=== PATIENT | male | born 1935 | race Caucasian/White ===

== ENCOUNTER 2016-09-03 21:31 | Inpatient (IN) | payer MEDICARE ==
[~2016-09-03] VITALS: Ht 182.9 cm; Wt 92.7 kg
--- NOTE | 2016-09-03 21:28 | ED.REPORT ---
HPI-Chest Pain 40 and Over Date of Service Sep 03, 2016 ED Provider: Von Caruso MD Pt is an 81 year old male with a hx of aortic valve replacement (2008), depression, Alzheimer's and prostate cancer presenting to the ED via EMS complaining of 6/10 gradual onset chest pain beginning 2 hours ago. Associated symptoms include nausea, diaphoresis, dizziness, weakness. Denies abdominal pain , SOB, numbness, or any other symptoms at this time. Pt was given 1 spray Nitro which improved his pain to 1/10, and 8 mg Zofran en route. He denies previous similar symptoms. Nursing Notes Stated Complaint: CHEST PAIN Nursing Notes Reviewed: Yes Allergies: Coded Allergies: tamsulosin (Verified Adverse Reaction, Unknown, DIZZY, NAUSEA, CONFUSION, 07/26/15) Scheduled Baclofen (Baclofen) 10 Mg Tablet 10 MG PO BID Ca Carb & Gluc/Mag Ox & Gluc (Calcium Magnesium Caplet) 1 Each Tablet 1 EACH PO BID Clopidogrel Bisulfate (Plavix) 75 Mg Tablet 75 MG PO DAILY Donepezil (Donepezil) 10 Mg Tablet 10 MG PO HS Lamotrigine (Lamictal) 100 Mg Tablet 150 MG PO BID Levothyroxine (Levothyroxine) 75 Mcg Tablet 75 MCG PO DAILY Mirtazapine (Mirtazapine) 30 Mg Tablet 30 MG PO HS Nifedipine ER (Nifedipine ER) 90 Mg Tab.er.24 90 MG PO DAILY Potassium Chloride (Potassium Chloride) 10 Meq Capsule.er 20 MEQ PO BID TAKE WITH FOOD Triamterene/HCTZ 37.5-25 mg (Triamterene/HCTZ 37.5-25 mg) 1 Each Tablet 1 EACH PO AM General Time Seen by MD: 21:25 Chief Complaint Chest pain Hx Obtained From: Patient, EMS Arrived By: Ambulance Sudden in Onset?: No Onset Occurred: 1 - 4 hours ago Symptom Duration: Since onset Quality: Painful Severity: Current: Pain level 1 out of 10 Severity: Maximum: Pain level 6 out of 10 Recent Healthcare: No recent doctor visit, No recent hospitalization Similar Sx Previous: No Risk Factors )( CAD Risk Stratification Hypertension Risk factors reviewed Past Medical History Past Medical History Depression HTN Alzheimer's Prostate cancer Past Surgical History Aortic valve replacement 2008 Smoking History Former Smoker Social History Alcohol Use: Denies alcohol use Drug Use: Denies drug use Ambulatory Status Independent Review of Systems Respiratory: Denies: Shortness of breath Cardiovascular: Reports: Chest pain GI: Reports: Nausea, Denies: Abdominal pain, Vomiting Skin: Reports Diaphoresis Neurologic: Reports: Dizziness, Weakness, Denies: Numbness Complete sys rev & neg: except as marked. Physical Exam Initial Vital Signs Vital Signs (First) Date Time Temp Pulse Resp B/P Pulse Ox O2 Delivery O2 Flow Rate FiO2 09/03/16 21:35 36.6 136 16 132/77 94 Room Air Initial VS: Reviewed, Vital signs abnormal Head / Eyes: Atraumatic, Normocephalic, PERRL ENT: Mucous membranes moist, Conjunctiva normal, No scleral icterus Extremities: Vascular intact, Neuro intact, No swelling, No tenderness Skin: Warm, Dry, No cyanosis Neurologic: Alert, Oriented, Nonfocal Psychiatric: Mood/affect normal, Behavior normal, Normal thought content General/Constitutional: Awake, Alert, No acute distress, Well appearing Respiratory / Chest: Breath sounds NL, Breath sounds = bilat, No respiratory distress, No rales, No rhonchi, No wheezing, No stridor, No chest tenderness Cardiovascular: Heart rate NL, Regular rhythm, Heart sounds NL Heart Sounds / Murmur: Positive: Systolic murmur present.. (III/) Abdomen: Atraumatic, Soft, Non-tender Lower Extremity / Pelvis / MS: Neurologic intact, Vascular intact 1+ right LE edema. Trace left LE edema. Interpretation & Diagnostics Lab Results Interpretation Result Diagram: 09/03/16213309/03/162133 Test 09/03/16 21:34 White Blood Count 7.9th/mm3 (3.8-10.1) Red Blood Count 5.14mil/mm3 (4.40-5.80) Hemoglobin 15.2g/dL (13.8-17.2) Hematocrit 45.3% (41.0-50.0) Mean Corpuscular Volume 88.1fL (81-100) Mean Corpuscular Hemoglobin 29.6pg (27.0-35.0) Mean Corpuscular Hemoglobin Concent 33.6% (32.0-37.0) Red Cell Distribution Width 14.7% (12.3-15.4) Platelet Count 328bil/L (150-400) Neutrophils (%) (Auto) 54.7% (40-74) Lymphocytes (%) (Auto) 31.3% (14-46) Monocytes (%) (Auto) 12.0% (4-12) Eosinophils (%) (Auto) 1.3% (0-5) Basophils (%) (Auto) 0.4% (0-3) Sodium Level 140mEq/L (134-144) Potassium Level 3.2mEq/L (3.5-5.2) Chloride Level 98mEq/L (97-108) Carbon Dioxide Level 25mmol/L (18-29) Blood Urea Nitrogen 12mg/dL (8-27) Creatinine 1.04mg/dL (0.76-1.27) Estimat Glomerular Filtration Rate 72mL/min (>59) Glucose Level 154mg/dL (60-99) Calcium Level 9.8mg/dL (8.5-10.1) Magnesium Level 2.3mg/dL (1.6-2.6) Total Bilirubin 0.4mg/dL (0.0-1.2) Aspartate Amino Transf (AST/SGOT) 32U/L (0-50) Alanine Aminotransferase (ALT/SGPT) 21U/L (0-44) Alkaline Phosphatase 84U/L (25-160) Troponin T 0.010ug/L (0.0-0.011) Total Protein 8.0g/dL (6.4-8.4) Albumin 4.8g/dL (3.4-5.0) Thyroid Stimulating Hormone (TSH) 3.190uIU/mL (0.450-4.500) Free Thyroxine 1.43ng/dL (0.82-1.77) Lab values outside NL range: no clinical significance. Lab Results Interpretation: Low potassium, normal troponin ECG Interpretation ECG Interpretation: Atrial flutter Time: 21:33 Interpreted by: ED physician, Associate Financial Planner Time: 22:44 Interpreted by: ED physician Normal ECG Interpretation: Normal sinus rhythm Abnormal Rate: 50 (57) Rhythm / Conduction: Bradycardia X-Ray Chest Interpretation Chest Xray Interpretation: Normal. Left hemidiaphragm. View: Portable, 1 view Interpretation / Wet Read by: Wet read ED physician Re-Eval/Medical Decision Med Decision/Clinical Course 81-year-old male with substernal chest pain and rapid heart rate brought in by paramedics. There was concern for ST elevation, possible STEMI. He was treated en route with Zofran and aspirin. His pain diminished. Upon arrival here he is EKG showed atrial flutter at a rate of 135 with 2-1 block. The nonconducting flutter waves were on top of the ST segment so it falsely appeared to be ST elevation. Case was discussed with Dr. Santacruz and he reviewed the EKG. He felt that there was atrial flutter with 2-1 block and no STEMI. Patient was given aspirin and one dose of IV metoprolol. His heart rate slowed , revealing atrial flutter with variable block and then converted back to a sinus bradycardia at 57 bpm. He is case was discussed with Dr. Leonardo and he will be admitted to the hospitalist service for further evaluation to include troponin trending. He is currently pain-free. Time of Eval: 21:58 Patient Status: Condition improved Re-Evaluation/Progress Note: Discussed consultation with Dr. Hardin. His reports that the pt has had an episode of atrial flutter in the past several years ago. Time of Eval: 22:42 Patient Status: Condition improved Re-Evaluation/Progress Note: Chest pain resolved. Repeat EKG shows normal sinus rhythm. Discussed plan for admission. Pt understands and agrees with plan. Consultation #1: Referral / Consult Name: Kris Hardin MD Consulted With: Cardiology Call Returned at: 21:49 Note: Dr. Hardin believes that the pt is in atrial flutter. Consultation #2: Referral / Consult Name: Clifton Leonardo MD Consulted With: Hospitalist Call Returned at: 23:20 Fruit Press Operator: Will see patient, Agrees with plan, Accepts admit Counseled Regarding: Diagnosis, Lab results, Need for follow-up, When/why to return to ED Discharge & Departure Primary Impression: New onset atrial flutter Additional Impression: Chest pain Chest pain type: chest pain due to myocardial ischemia Disposition: ADMITTED TO HOSPITAL Discharge Condition All VS Reviewed: Yes Condition: Improved Referrals: [facility] Crit Care Except Billable Proc Time Spent: 30-74 minutes (50 minutes) Services Performed: Patient management by me, Time spent at bedside, Reviewing test results, Reviewing imaging, Discussing patient care, Documentation in record Critical Care Notes: Substernal chest pain with rapid heart rate, atrial flutter treated with IV metoprolol. Scribe Attestation Portions of this note were transcribed by Cyn Maldonado. I, Dr. Caruso personally performed the history, physical exam and medical decision-making; I reviewed and confirmed the accuracy of the information in the transcribed note. Signed by: Bronson Quarles, and [phone]. copies to: [facility] Von Caruso MD Sep 03, 2016 21:28 CYN MALDONADO Sep 03, 2016 21:56
[~2016-09-03 21:31] MED LIST: Aspirin PO; BACL10TA PO; CA C1TAB86 PO; CLOP75TA3 PO; DONE5TAB30 PO; LEVO750T39 PO; LISI-567 PO; MIRT30TA6 PO; NIFE60TA9 PO; POTA10CA42 PO; TRIA1TAB3 PO
[2016-09-03 21:35] VITALS: BP 132/77; PULSE 136; RESP 16; O2SAT 94
[2016-09-03] MEDS ORDERED: MeTOProlol 1 mg/mL 5 mL Inj IVPUSH PRN (21:40)
[2016-09-03 21:43] LABS: BASOPHILS % (AUTO) 0.4 % (0-3); EOSINOPHILS % (AUTO) 1.3 % (0-5); Mean Corpuscular Hemoglobin 29.6 pg (27.0-35.0); Mean Corpuscular Volume 88.1 fL (81-100); NEUTROPHILS % (AUTO) 54.7 % (40-74); Platelet Count 328 bil/L (150-400)
[2016-09-03 21:59] VITALS: BP 126/80; PULSE 92; RESP 16; O2SAT 96
[2016-09-03 22:06] LABS: TROPONIN T 0.01 ug/L (0.0-0.011)
[2016-09-03 22:17] LABS: Magnesium 2.3 mg/dL (1.6-2.6)
[2016-09-03] MEDS ORDERED: BACL10TA PO (22:58)
[2016-09-03] MEDS ORDERED: NIFE90TA31 PO (22:58)
[2016-09-03] MEDS ORDERED: LAMO100T PO (22:58)
[2016-09-03] MEDS ORDERED: DONE10TA42 PO (22:58)
[2016-09-03] MEDS ORDERED: Potassium Chloride 20 mEq SR Tablet PO ONE (23:00)
[2016-09-03] MEDS ORDERED: LEVO75TA4 PO (23:01)
[2016-09-03] MEDS ORDERED: Ondansetron 2 mg/mL 2 mL Inj IVPUSH PRN (23:40)
[2016-09-03] MEDS ORDERED: Alum-Mag Hydrox-Simeth 30 mL Suspension PO PRN (23:40)
[2016-09-03] MEDS ORDERED: Polyethylene Glycol (PEG) 17 Gm Powder PO PRN (23:40)
[2016-09-03] MEDS ORDERED: Potassium Chloride 20 mEq/15 mL 15mL Oral Soln PO ONE (23:45)
[2016-09-04] VITALS (9 sets, daily range): BP systolic 122–174; BP diastolic 60–80; PULSE 56–69; RESP 16–18; O2SAT 94–98
--- NOTE | 2016-09-04 01:11 | NUR ---
ADMIT NOTE Pt arrived to [facility] approx 0035. Pt alert and oriented. Pt able to ambulate from stretcher to bed, SBA for safety. Pt states using cane sometime at home. VS obtained. Pt placed on remote telemetry, sap technical developer notified. Pt denies chest pain or any other discomforts at this time. Continue to monitor. Call light in reach. Bed alarm on. Intentional rounding.
[2016-09-04] MEDS: Heparin 5,000 Unit/mL Inj SUBQ SCH ×3 (01:45→16:14)
--- NOTE | 2016-09-04 01:55 | NUR ---
TELEMETRY--7 beats V.tach At 0150, per monitoring engineer, pt had 7 beats V.tach. RN went to check on pt, pt laying in bed, awake, denies any chest pain or discomforts. NOC resident notified. No new orders at this time.
--- NOTE | 2016-09-04 02:04 | NUR ---
FAMILY CONCERNS Pts grand-daughter who is staying overnight w/ pt states, "I don't know if this has anything to do with my grandfather's current situation, but in 2007, my father , right around father's day. So around this time, he forgets to eat, downplays a lot of his medical issues and his depression. He is not the best historian for his medical health." Continue to monitor.
[2016-09-04 02:17] LABS: APPEARANCE,URINE CLEAR (CLEAR,HAZY); COLOR,URINE YELLOW (YELLOW); OCCULT BLOOD,URINE NEGATIVE (NEGATIVE); PH,URINE 6.5 (5.0-8.0); UROBILINOGEN,URINE NORMAL (NORMAL)
--- NOTE | 2016-09-04 04:46 | PCM.HPMED ---
Subjective Date of Service Sep 04, 2016 Primary Provider: Admitting Physician: Clifton Leonardo MD Primary Care Physician: Hernan Cummings Attending Physician: Clifton Leonardo MD Admit Status: From the Emergency Department Chief Complaint: Chest pain History of Present Illness: Pt is an 81 year old male with a history of of aortic valve replacement (2008), depression, Alzheimer's and prostate cancer post external beam radiation in remission presenting to the ED via EMS complaining of gradual onset intrascapular back pain which eventually radiated into his chest. The patient states that he was out in the yard working this afternoon when he began to feel the pain gradually at onset. The patient describes the pain as pressure initially starting between his scapulas however eventually radiating into his chest. The patient sat down and the pain continued to become worse and eventually growing to 6 out of 10 with associated nausea, clammy cold diaphoresis, dizziness, with mild shortness of breath. The patient took his blood pressure at that time and was found to have a blood pressure of 150s over 100s with an elevated heart rate. The patient states that he called EMS where the patient was given 1 spray Nitro which improved his pain to 1/10, and 8 mg Zofran en route. He denies previous similar symptoms. In the ED the patient was noted to have a possible atrial flutter which was discussed specifically with cardiology, and converted spontaneously after administration of IV metoprolol. There is a possible past medical history remarkable for atrial fibrillation/flutter. The patient denies any recent illness including previous fever or chills, coughing sore throat and runny nose, abdominal pain, swelling in his hands or feet. Review of Systems: A comprehensive review of systems was obtained and all are negative except for what is included in the history of present illness. Allergies Coded Allergies: levofloxacin (Verified Allergy, Severe, 09/04/16) Blistering feet tamsulosin (Verified Adverse Reaction, Unknown, DIZZY, NAUSEA, CONFUSION, 07/26/15) Home Medications Baclofen (Baclofen) 10 Mg Tablet 10 MG PO BID Ca Carb & Gluc/Mag Ox & Gluc (Calcium Magnesium Caplet) 1 Each Tablet 1 EACH PO BID Clopidogrel Bisulfate (Plavix) 75 Mg Tablet 75 MG PO DAILY Donepezil (Donepezil) 10 Mg Tablet 10 MG PO HS Lamotrigine (Lamictal) 100 Mg Tablet 150 MG PO BID Levothyroxine (Levothyroxine) 75 Mcg Tablet 75 MCG PO DAILY Mirtazapine (Mirtazapine) 30 Mg Tablet 30 MG PO HS Nifedipine ER (Nifedipine ER) 90 Mg Tab.er.24 90 MG PO DAILY Potassium Chloride (Potassium Chloride) 10 Meq Capsule.er 20 MEQ PO BID TAKE WITH FOOD Triamterene/HCTZ 37.5-25 mg (Triamterene/HCTZ 37.5-25 mg) 1 Each Tablet 1 EACH PO AM PMH History of TIA Coronary artery disease Aortic valve stenosis Dyslipidemia Osteoarthritis Depression Hypertension Alzheimer's Prostate cancer in remission Surgical History Porcine Aortic valve replacement 2009 External beam radiation for prostate cancer Family History Father had heart attack and stroke in his 50s dying at 72 Mother had possible heart disease and in her 80s Social History 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 Hx Alcohol Use: No Hx Substance Use: No Hx Tobacco Use: Yes Smoking Status: Former Smoker (quit 33 years old) Living Arrangement: with Family Exam Vital Signs Vital Sign - Last Date Time Temp Pulse Resp B/P Pulse Ox O2 Delivery O2 Flow Rate FiO2 09/04/16 00:49 36.3 65 16 174/74 98 Room Air Exam Gen.: Senior at male appearing younger than stated age in no acute distress lying comfortably in bed Eyes: Pupils equal round and reactive to light, extraocular motion intact anicteric sclera noninjected conjunctiva HENT: Normocephalic atraumatic, moist mucous membranes without central cyanosis , without cobblestoning mucosa Neck: Supple, trachea midline, no JVD Cardiovascular: Regular rate and rhythm, soft systolic ejection murmur noted at right sternal border, no rubs or gallops noted, PMI nondisplaced Lungs: Clear to auscultation bilaterally without wheezing rales or rhonchi Abdomen: Nontender, normal active bowel sounds, nondistended, tympanic to percussion Extremities: Pulses intact and radial and dorsalis pedis bilaterally, Capillary refill less than 3 seconds, no cyanosis clubbing or edema noted Skin: Warm and dry : No Sr in place Neuro: No focal neurologic deficits Psych: Normal mood and affect Lab and Diagnostics Result Diagram: 09/03/16213309/03/162133 X-Rays, CTs and MRIs No acute cardiopulmonary processes per wet read 12-lead ECG ECG in EMR shows sinus tachycardia with appearance of possible ST depression in leads I and aVL, with reciprocal ST elevation in III, aVR, V1 Per the ED report "81-year-old male with substernal chest pain and rapid heart rate brought in by paramedics. There was concern for ST elevation, possible STEMI. He was treated en route with Zofran and aspirin. His pain diminished. Upon arrival here he is EKG showed atrial flutter at a rate of 135 with 2-1 block. The nonconducting flutter waves were on top of the ST segment so it falsely appeared to be ST elevation. Case was discussed with Dr. Santacruz and he reviewed the EKG. He felt that there was atrial flutter with 2-1 block and no STEMI. Patient was given aspirin and one dose of IV metoprolol. His heart rate slowed, revealing atrial flutter with variable block and then converted back to a sinus bradycardia at 57 bpm." Cardiac Echo Impressions Previously performed Echocardiogram Report 2015 Interpretation Summary Sinus bradycardia. heart rate is 57-62 bpm. Normal LV size; mild concentric LVH; there is subtle basal inferior, mid- inferior, distal inferior, distal septal and mid-inferoseptal hypokinesis. All other segments demonstrate normal wall motion. EF is normal, estimated at 60-65% . Stage I disatolic dysfunction Aortic valve is replaced by history with a stented bioprosthesis. Aortic valve is functioning normally. There is severe LA enlargement and moderate RA enlargement. Mildly enlarged ascending aorta and ascending root. Compared to prior study dated 11/03/2013, subtle focal wall motion abnormalities in inferior and inferoseptum distribution are unchanged on personal review. Otherwise no significant changes have occurred. Reading Physician:01: 50 PM Assessment & Plan Pt is an 81 year old male with a history of of aortic valve replacement (2008), depression, Alzheimer's and prostate cancer post external beam radiation in remission presenting to the ED via EMS complaining of gradual onset intrascapular back pain which eventually radiated into his chest. # Atypical chest pain - Described as pressure in between the scapula radiating to his chest and occurred at rest however may have resolved with nitroglycerin - ECG initially showed tachycardia however after IV metoprolol push slowed to reveal 2:1 atrial flutter read by the machine feeder raw stock per the ED note - Echocardiogram ordered to check for wall motion abnormalities - Troponins initially negative trended every 6 hours # Paroxysmal atrial flutter/fibrillation - Possibly the cause of the atypical chest pain - Patient and family report a possible previous episode of atrial fibrillation in the past - Noted by the ED provider in communication with the machine feeder raw stock, spontaneously cardioverted after administration of metoprolol 5 mg IV - TSH 3.19 and free T4 1 0.43 ordered in the emergency department appear to be in normal ranges - Noted hypokalemia could possibly caused tachyarrhythmia, repleted we will repeat BMP - Telemetry with when necessary ECGs - The patient will need to be started on anticoagulation therapy likely Lovenox 1 mg/kg Bridge to warfarin - Day team to consider warfarin versus novel anticoagulant # Acute on Chronic hypokalemia - Potassium at admission 3.2 - Patient is on chronic potassium chloride replacement 20 mEq twice a day - Replete when necessary - Monitor with serial BMPs # Chronic Hypertension - Continue outpatient therapy - Nifedipine 90 mg daily - Triamterene/HCTZ - Holding beta silvestre at this time # History of TIA - Patient is chronically on clopidogrel 75 mg daily this will be discontinued in place of anticoagulation described above for paroxysmal atrial fibrillation to likely Lovenox to warfarin or other novel anticoagulant # Aortic valve stenosis post porcine valve replacement - Patient is chronically on clopidogrel 75 mg daily this will be discontinued in place of anticoagulation described above for paroxysmal atrial fibrillation to likely Lovenox to warfarin or other novel anticoagulant # Chronic Dyslipidemia - Patient is currently not on statin therapy - Lipid panel ordered in the morning # History of Depression - Continue the patient's home medication therapy - Mirtazapine 30 mg at bedtime - Lamictal 150 mg twice a day # Chronic Alzheimer's disease - Continue the patient's home Aricept 10 mg daily # Prostate cancer in remission - Monitor for difficulty with urination DVT prophylaxis: Currently heparin 5000 units 3 times a day to be converted to Lovenox 1 mg/kg GI prophylaxis: Not indicated at this time CODE STATUS: DNR/DNI Patient is admitted to observation status with likely stay less than 2 midnights given presenting symptoms, likely diagnosis, possible complications and required treatments. Pain Evaluation: Adequate Pain Control GI Prophylaxis: Not indicated VTE Prophylaxis Indicated: Meets Criteria for Anticoag Therapy VTE Prophylaxis: Sub-Q Heparin (Unfractionated) Resuscitation Status: DNR/DNI:Do Not Resuscitate/Intubate Attending Statement The patient was seen and examined together with Dr. Rivera on 09/03 and I agree with the history, exam and plan as outlined in the note above. Franco Nieves DO Sep 04, 2016 01:17 Clifton Leonardo MD Sep 04, 2016 05:07
[2016-09-04 04:59] LABS: TROPONIN T 0.01 ug/L (0.0-0.011)
[2016-09-04] MEDS: lamoTRIgine 100 mg Tablet PO SCH ×2 (08:44→20:56)
[2016-09-04] MEDS: NIFEdipine 30 mg ER24 Tablet PO SCH (08:45)
--- NOTE | 2016-09-04 11:06 | PCM.PNMED ---
Subjective Date of Service Sep 04, 2016 Subjective He is seen today in his room to follow-up the atrial flutter and chest pain. His troponins have been normal. He has had no chest pain or palpitations. Cardiology will be seeing him today. Telemetry has been normal. An EKG is pending. Exam Vital Signs Vital Sign - Last Date Time Temp Pulse Resp B/P Pulse Ox O2 Delivery O2 Flow Rate FiO2 09/04/16 10:24 56 09/04/16 10:13 36.3 18 139/72 97 Room Air Intake and Output 09/03/16 09/03/16 09/04/16 Cumulative From/Thru 15:00 23:00 07:00 09/03/16 21:35 - 09/04/16 05:40 Intake Total 375 ml 375 ml Output Total 600 ml 600 ml Balance -225 ml -225 ml Intake Oral 375 ml 375 ml Output Urine Total 600 ml 600 ml Exam On exam he appears to be alert and oriented but quickly becomes evident that he has limited memory of recent events. His granddaughter is resting in the room and appears to be the family dental detail representative to help with such questions. Heart is regular rate and rhythm without murmur Lungs are clear to auscultation bilaterally Extremities have no ankle edema. IVs and Medications Medications Reviewed: Medications were reviewed in detail Lab and Diagnostics Result Diagram: 09/03/164 09/04/16 0405 X-Rays, CTs and MRIs No acute cardiopulmonary processes per wet read 12-lead ECG ECG in EMR shows sinus tachycardia with appearance of possible ST depression in leads I and aVL, with reciprocal ST elevation in III, aVR, V1 Per the ED report "81-year-old male with substernal chest pain and rapid heart rate brought in by paramedics. There was concern for ST elevation, possible STEMI. He was treated en route with Zofran and aspirin. His pain diminished. Upon arrival here he is EKG showed atrial flutter at a rate of 135 with 2-1 block. The nonconducting flutter waves were on top of the ST segment so it falsely appeared to be ST elevation. Case was discussed with Dr. Santacruz and he reviewed the EKG. He felt that there was atrial flutter with 2-1 block and no STEMI. Patient was given aspirin and one dose of IV metoprolol. His heart rate slowed, revealing atrial flutter with variable block and then converted back to a sinus bradycardia at 57 bpm. Cardiac Echo Impressions Previously performed Echocardiogram Report 2015 Interpretation Summary Sinus bradycardia. heart rate is 57-62 bpm. Normal LV size; mild concentric LVH; there is subtle basal inferior, mid- inferior, distal inferior, distal septal and mid-inferoseptal hypokinesis. All other segments demonstrate normal wall motion. EF is normal, estimated at 60-65% . Stage I disatolic dysfunction Aortic valve is replaced by history with a stented bioprosthesis. Aortic valve is functioning normally. There is severe LA enlargement and moderate RA enlargement. Mildly enlarged ascending aorta and ascending root. Compared to prior study dated 11/03/2013, subtle focal wall motion abnormalities in inferior and inferoseptum distribution are unchanged on personal review. Otherwise no significant changes have occurred. Reading Physician:01: 50 PM Assessment & Plan Pt is an 81 year old male with a history of of aortic valve replacement (2008), depression, Alzheimer's and prostate cancer post external beam radiation in remission presenting to the ED via EMS complaining of gradual onset intrascapular back pain which eventually radiated into his chest. # Atypical chest pain - Described as pressure in between the scapula radiating to his chest and occurred at rest however may have resolved with nitroglycerin - ECG initially showed tachycardia however after IV metoprolol push slowed to reveal 2:1 atrial flutter read by the broke beater operator per the ED note - Echocardiogram ordered to check for wall motion abnormalities - Troponin trend has been normal at 0.013 # Paroxysmal atrial flutter/fibrillation - Possibly the cause of the atypical chest pain - Patient and family report a possible previous episode of atrial fibrillation in the past - Noted by the ED provider in communication with the broke beater operator, spontaneously cardioverted after administration of metoprolol 5 mg IV - TSH 3.19 and free T4 1 0.43 ordered in the emergency department appear to be in normal ranges - Noted hypokalemia could possibly caused tachyarrhythmia, BMP is normal today. - Telemetry with when necessary ECGs, EKG pending now - The patient will need to be started on anticoagulation therapy likely Lovenox 1 mg/kg Bridge to warfarin - Begin warfarin - Expect cardiology consult today per reported interactions yesterday # Acute on Chronic hypokalemia - Potassium at admission 3.2 - Patient is on chronic potassium chloride replacement 20 mEq twice a day - Replete when necessary - Monitor with serial BMPs # Chronic Hypertension - Continue outpatient therapy - Nifedipine 90 mg daily - Triamterene/HCTZ - Holding beta silvestre at this time # History of TIA - Patient is chronically on clopidogrel 75 mg daily this will be discontinued in place of anticoagulation described above for paroxysmal atrial fibrillation to warfarin # Aortic valve stenosis post porcine valve replacement - Patient is chronically on clopidogrel 75 mg daily this will be discontinued in place of anticoagulation described above for paroxysmal atrial fibrillation to warfarin # Chronic Dyslipidemia - Patient is currently not on statin therapy - Lipid panel reviewed # History of Depression - Continue the patient's home medication therapy - Mirtazapine 30 mg at bedtime - Lamictal 150 mg twice a day # Chronic Alzheimer's disease - Continue the patient's home Aricept 10 mg daily # Prostate cancer in remission - Monitor for difficulty with urination DVT prophylaxis: Currently heparin 5000 units 3 times a day to be converted to Lovenox 1 mg/kg GI prophylaxis: Not indicated at this time CODE STATUS: DNR/DNI Patient still likely to be discharged tomorrow Jed Orourke M.D. GI Prophylaxis: Not indicated VTE Prophylaxis: Sub-Q Heparin (Unfractionated) Resuscitation Status: DNR/DNI:Do Not Resuscitate/Intubate Migue Orourke MD Sep 04, 2016 10:29
--- NOTE | 2016-09-04 12:25 | NUR ---
CHUY explained and signed. Copy of CHUY and Medicare self administered medication information given to pt.
[2016-09-04 12:31] LABS: INR 0.95 ratio
--- NOTE | 2016-09-04 14:55 | PCM.PHAPRO ---
Progress Chest pain WARFARIN DOSING PER PHARMACY Indication: Afib INR Goal: 2-3 Home dose: New start DI: mirtazapine, plavix Additional anticoagulation: heparin 5000mg sq tid Hct/plt: 45.3/328 Of note: Contacted the MD to begin bridging as stated in progress note and was notified that MD does not want to begin bridging Date INR 0.95 Based on age, will give one time dose of warfarin 2.5 mg PO [facility] will continue to monitor Ijeoma Mesa PharmD Sep 04, 2016 14:55
--- NOTE | 2016-09-04 16:14 | NUR ---
Social Work-initial assessment/readiness for discharge: data:See initial assessment. Pt is a 81 y/o male who was admitted on 09/04/16 for aflutter per H&P. Pt's insurance is [employer] and PCP is VICK Burciaga.EMR reviewed. Pt's readmission score is 2. SW met with pt at bedside to discuss discharge planning, SW role explained. Pt is alert and oriented x3. Pt resides at home with his on [address] where he remains independent with ADLs. Pt drives and does not use any DME. pt has no HH or SNF history. 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 SW discussed DPOA/ advanced directive, pt confirms he has completed this, SW encouraged a copy to be brought in. Per RN notes, pt has been up independent in his room. Pt confirms no SW needs. Pt's to provide transport home at discharge. SW provided phone number and plan on white board in room. No anticipated discharge needs. SW will continue to follow if needs arise. Assessment:Pt who is independent at baseline. Plan:Pt to discharge home when medically stable via POV. No anticipated discharge needs. SW will continue to follow if needs arise. IVONE Vu Addendum: 09/04/16 at 1618 by BLADE RIOS Amended: Links added.
--- NOTE | 2016-09-04 17:16 | NUR ---
activity: Patient has been up adlib in his room today . He has had no c/o chest pain or other issues. Her Telemetry has been SR in the 60s.
[2016-09-05] VITALS (9 sets, daily range): BP systolic 124–167; BP diastolic 64–84; PULSE 53–83; RESP 16–18; O2SAT 93–97
[2016-09-05] MEDS: Heparin 5,000 Unit/mL Inj SUBQ SCH ×3 (00:41→16:41)
--- NOTE | 2016-09-05 04:58 | NUR ---
PT ACTIVITY Pt up in room, having dinner and talking with family during first couple hrs of shift. Pt took evening medications w/out difficulty. Pt has been up to BR, steady on feet. Pt has denied any pain or any other discomforts. Continue to monitor. Call light in reach. Intentional rounding.
[2016-09-05 06:34] LABS: INR 0.97 ratio
--- NOTE | 2016-09-05 07:54 | PCM.PHAPRO ---
Progress Chest pain Date Sep 05 INR 0.95 0.97 INR change 0.02 Warf Dose 2.5 MG 4 requests no bridge. Reno Meredith Pharm.D Sep 05, 2016 07:54
[2016-09-05] MEDS: lamoTRIgine 100 mg Tablet PO SCH ×2 (08:53→20:22)
[2016-09-05] MEDS: NIFEdipine 30 mg ER24 Tablet PO SCH (08:54)
--- NOTE | 2016-09-05 14:40 | DRSVH ---
[facility] [address] [place] [address] Echocardiogram Report Name: JOSELYN WALTON JStudy Date: 09/04/2016 Height: 72 in Hospital Exam Location: [facility] Weight: 209 lb Gender: Male BSA: 2.2 m2 : 1935 Age: 81 yrs BP: 139/72 m mHg Reason For Study: Atrial flutter Ordering Physician: HOSPITALIST [facility] Performed By: Stacey Santa [facility] Phys[facility] Interpretation Summary The left ventricle is normal in size. The ejection fraction is estimated to be 65-70%. The right ventricle is grossly normal size.The right ventricular systolic function is normal. There is a porcine aortic valve. The prosthetic aortic valve is well-seated. The peak aortic velocity is 3.06 m/sec. The aortic valve mean gradient is 20.3 mmHg. The peak aortic velocity on the previous exam was 3.0 m/sec. There is mild tricuspid regurgitation. Compared to the prior echo exam, there has been no change in TR severity. Right ventricular systolic pressure is estimated to be 32 mmHg plus the clinically estimated CVP which cannot be estimated on this exam. Mild atherosclerotic plaque(s) in the aortic arch. Procedure: A two-dimensional transthoracic echocardiogram with color flow and Doppler was performed. The study quality was technically adequate. Comparison is made with the echocardiogram of 05/17/2014. The heart rate ranged between 47-57 bpm during the study. The patient was in sinus bradycardia with heart rates between 47-57 bpm during the exam. Left Ventricle: Left ventricular wall thickness is mildly increased. The left ventricle is normal in size. There is no thrombus. The ejection fraction is estimated to be 65-70%. There has been no significant change since the previous study. There are no focal wall motion abnormalities. Spectral Doppler of the mitral valve shows a normal E/A wave ratio. The E/E' ratio is abnormal. Right Ventricle: The right ventricle is grossly normal size. The right ventricular systolic function is normal. Atria: The left atrium is severely dilated. The left atrium has remained unchanged in size since the prior echo exam. The right atrium is mildly dilated. The right atrium has mildly decreased in size since the prior echo exam. Mitral Valve: There is mild mitral annular calcification. The mitral valve leaflets are slightly calcified. There is mild mitral regurgitation. Compared to the prior echo study, there has been no change in the severity of mitral regurgitation. Aortic Valve: There is a porcine aortic valve. The prosthetic aortic valve is not well visualized. The prosthetic aortic valve is well-seated. The peak aortic velocity is 3.06 m/sec. The aortic valve mean gradient is 20.3 mmHg. The peak aortic velocity on the previous exam was 3.0 m/sec. No aortic regurgitation is present. Tricuspid Valve: The tricuspid valve is not well visualized, but is grossly normal. There is mild tricuspid regurgitation. Right ventricular systolic pressure is estimated to be 32 mmHg plus the clinically estimated CVP which cannot be estimated on this exam. Compared to the prior echo exam, there has been no change in TR severity. Pulmonic Valve: The pulmonic valve is not well seen, but is grossly normal. There is trace pulmonic regurgitation. Great Vessels: The aortic root is normal size. The ascending aorta could not be visualized. The aortic arch is mildly enlarged. Mild atherosclerotic plaque(s) in the aortic arch. The inferior vena cava was not visualized. Pericardium/ Pleura There is no pericardial effusion. MMode/2D Measurements & Calculations LVIDd: 5.1 cm LA dimension: 4.7 cm RA long axis LVOT diam: 2.1 cm LVIDs: 3.4 cm Ao root diam FS: 34.6 % LA A2 area: 32.4 cm RA area EPSS: 1.0 cm LA A4 area: 32.2 cm Ao Arch Diam (Prox IVSd: 1.2 cm LA length (vol) : 21.4 cm Trans): 3.6 cm LVPWd: 1.3 cm RA vol LA vol: 132.9 ml : 64.9 ml LA vol index RA : 29.9 mm2 : 61.2 ml/m2 LV tom. diameter/BSA LV sys. diameter/BSA RVD1 (basal) (cm/m^2): 2.4 (cm/m^2): 1.5 Doppler Measurements & Calculations Ao V2 max MV E max kevin MV E/A: 1.5 TR max kevin : 307.6 cm/sec : 101.2 cm/sec Med Peak E' Kevin : 281.5 cm/sec Ao max PG MV A max kevin TR max PG : 37.9 mmHg : 69.2 cm/sec E/E' med: 12.5 : 31.7 mmHg Ao mean PG MV P1/2t: 78.2 msec Lat Peak E' Kevin PA V2 max : 20.3 mmHg : 84.1 cm/sec LVOT Max Kevin E/E' lat: 12.6 PA mean PG : 73.9 cm/sec E/e' average TRAE(I,D) PA Accel Time : 0.12 sec : 0.89 cm sev ratio MV dec time MV P1/2t max kevin Ao V2 mean LV V1 max PG : 0.26 sec : 212.2 cm/sec MVA(P1/2t): 2.8 cm2 Ao V2 VTI: 71.9 cmLV V1 VTI TRAE(V,D): 0.86 cm2: 17.9 cm PA V2 mean TRAE indexed to BSA : 58.9 cm/sec (cm^2/m^2): 0.41 Reading Physician:MONICA
--- NOTE | 2016-09-05 15:41 | NUR ---
Activity: Patient has had no issues this shift. He is able to ambulate in his room without issues. Tele is SR in the 60s and in the 50s while patient is sleeping.
--- NOTE | 2016-09-05 17:25 | NUR ---
Inpatient status effective today, ADELAIDE signed.
--- NOTE | 2016-09-05 17:29 | PCM.PNMED ---
Subjective Date of Service Sep 05, 2016 Subjective Patient notes no significant recurrence of chest pressure since admission to hospital. He has been able to ambulate without hospital floor without significant distress as well. No other acute complaints at this time. Exam Vital Signs Vital Sign - Last Date Time Temp Pulse Resp B/P Pulse Ox O2 Delivery O2 Flow Rate FiO2 09/05/16 13:16 36.3 65 18 129/77 94 Room Air Intake and Output 09/04/16 09/04/16 09/05/16 Cumulative From/Thru 15:00 23:00 07:00 09/03/16 21:35 - 09/05/16 05:14 Intake Total 800 ml 300 ml 1475 ml Output Total 600 ml 825 ml 2025 ml Balance 200 ml -525 ml -550 ml Intake Oral 800 ml 300 ml 1475 ml Output Urine Total 600 ml 825 ml 2025 ml General: Alert, Oriented X3, Cooperative, No Acute Distress Eyes: PERRLA Neck: Supple Chest & Lungs: Clear to auscultation & percussion, No adventitious breath sounds Cardiovascular: Regular Rate/Rhythm Abdomen: Non-tender, Non-distended Extremities: No cyanosis/clubbing/edma bilat Neurological: Grossly Neurologically Intact IVs and Medications Medications Reviewed: Medications were reviewed in detail Lab and Diagnostics Result Diagram: 09/03/164 09/04/16 0405 X-Rays, CTs and MRIs No acute cardiopulmonary processes per wet read 12-lead ECG ECG in EMR shows sinus tachycardia with appearance of possible ST depression in leads I and aVL, with reciprocal ST elevation in III, aVR, V1 Per the ED report "81-year-old male with substernal chest pain and rapid heart rate brought in by paramedics. There was concern for ST elevation, possible STEMI. He was treated en route with Zofran and aspirin. His pain diminished. Upon arrival here he is EKG showed atrial flutter at a rate of 135 with 2-1 block. The nonconducting flutter waves were on top of the ST segment so it falsely appeared to be ST elevation. Case was discussed with Dr. Santacruz and he reviewed the EKG. He felt that there was atrial flutter with 2-1 block and no STEMI. Patient was given aspirin and one dose of IV metoprolol. His heart rate slowed, revealing atrial flutter with variable block and then converted back to a sinus bradycardia at 57 bpm. Cardiac Echo Impressions Previously performed Echocardiogram Report 2015 Interpretation Summary Sinus bradycardia. heart rate is 57-62 bpm. Normal LV size; mild concentric LVH; there is subtle basal inferior, mid- inferior, distal inferior, distal septal and mid-inferoseptal hypokinesis. All other segments demonstrate normal wall motion. EF is normal, estimated at 60-65% . Stage I disatolic dysfunction Aortic valve is replaced by history with a stented bioprosthesis. Aortic valve is functioning normally. There is severe LA enlargement and moderate RA enlargement. Mildly enlarged ascending aorta and ascending root. Compared to prior study dated 11/03/2013, subtle focal wall motion abnormalities in inferior and inferoseptum distribution are unchanged on personal review. Otherwise no significant changes have occurred. Reading Physician:01: 50 PM Assessment & Plan Pt is an 81 year old male with a history of of aortic valve replacement (2008), depression, Alzheimer's and prostate cancer post external beam radiation in remission presenting to the ED via EMS complaining of gradual onset intrascapular back pain which eventually radiated into his chest. # Atypical chest pain - Described as pressure in between the scapula radiating to his chest and occurred at rest however may have resolved with nitroglycerin - ECG initially showed tachycardia however after IV metoprolol push slowed to reveal 2:1 atrial flutter read by the product demonstrator per the ED note - Echocardiogram ordered to check for wall motion abnormalities demonstrated no acute abnormalities - Troponin trend has been normal at 0.013 - Based discussed with product demonstrator, who believes in the setting of new onset atrial flutter in addition to acute chest pain alternative etiologies should be considered including aortic pathology - In addition given patient's past medical history of coronary vessel disease, he is recommending more aggressive blood pressure control at this time - CT aortogram is currently ordered and pending. # Paroxysmal atrial flutter/fibrillation - Possibly the cause of the atypical chest pain - Patient and family report a possible previous episode of atrial fibrillation in the past - Noted by the ED provider in communication with the product demonstrator, spontaneously cardioverted after administration of metoprolol 5 mg IV - TSH 3.19 and free T4 1 0.43 ordered in the emergency department appear to be in normal ranges - Noted hypokalemia could possibly caused tachyarrhythmia, BMP is normal today. - Telemetry with when necessary ECGs - Patient is transitioned to Eloquis given increased ease of dosing. NO bridge will be required. - Expect cardiology consult today per reported interactions yesterday # Acute on Chronic hypokalemia - Potassium at admission 3.2 - Patient is on chronic potassium chloride replacement 20 mEq twice a day - Replete when necessary - Monitor with serial BMPs # Chronic Hypertension - Continue outpatient therapy - Nifedipine 90 mg daily - Triamterene/HCTZ - We will restart beta silvestre on recommendation of product demonstrator # History of TIA # Aortic valve stenosis post porcine valve replacement - Patient is chronically on clopidogrel 75 mg daily is recommended to be continued in conjunction with our quest as per cardiology # Chronic Dyslipidemia - Patient is currently not on statin therapy - Lipid panel reviewed, in spite of normal findings cardiology is recommending initiation of statin medication given underlying vessel disease. # History of Depression - Continue the patient's home medication therapy - Mirtazapine 30 mg at bedtime - Lamictal 150 mg twice a day # Chronic Alzheimer's disease - Continue the patient's home Aricept 10 mg daily # Prostate cancer in remission - Monitor for difficulty with urination Pain Evaluation: Adequate Pain Control GI Prophylaxis: Not indicated VTE Prophylaxis: Sub-Q Heparin (Unfractionated) Resuscitation Status: DNR/DNI:Do Not Resuscitate/Intubate Time spent 25 minutes Max Lara DO Sep 05, 2016 17:29
--- NOTE | 2016-09-05 17:38 | CONS ---
[address] [address] CONSULTATION REPORT PATIENT: JOSELYN WALTON : 1935 MR#: [id number] ADMIT: 09/04/2016 JOB ID: [id number] DATE OF SERVICE: 09/05/2016 SUBJECTIVE: The hospitalist team asked me to see this patient regarding episode of interscapular pain, tachycardia, likely atrial flutter. CHIEF COMPLAINT: Interscapular pain, chest pain. PRESENT HISTORY: This 81-year-old, pleasant male who underwent a 25 mm Medtronic Mosaic porcine valve replacement for severe aortic regurgitation at [facility] by Dr. Dan without any significant coronary artery disease at that time, LV ejection fraction 49% which got improved, history of paroxysmal AFib as per [facility] note as well as his transcribing machine mechanic, Hernan Hammer's note, who was advised to be on anticoagulation but he is not on anticoagulation, episode of speech difficulty, likely TIA about two years ago, essential hypertension, history of noncritical carotid artery disease, hyperlipidemia, depression, osteoarthritis, dementia, prostate cancer, in remission got admitted because of above-mentioned chief complaint. According to the patient, he is physically very active. He was trying to work on his boat yesterday. He was on his feet for 6 hours. Then, he felt pain in between his shoulder blade. He sat down. Then, he started having radiation towards his both arms and towards his chest. It became intense. He felt clammy and had some diaphoresis and nausea. [place] some shortness of breath. On a scale of 1-10, it became 6-8 in intensity. He called EMS. He was given one nitroglycerin which decreased his pain. He was given Zofran. He checked his blood pressure when he was having those symptoms. His blood pressure around 158 systolic, however, diastolic was about 113 and heart rate about 130s. In the emergency department, the patient has narrow QRS tachycardia. ED physician discussed with Dr. Hardin. The possibility of atrial flutter with 2:1 block was kept. The patient was given beta silvestre and then got converted to sinus rhythm. He got admitted to the hospital. He ruled out for acute myocardial infarction by serial cardiac markers. He had echocardiogram yesterday on September 04, 2016, which revealed normal left ventricle size with LV ejection fraction 65% to 70% with normal right ventricular function, well-seated porcine aortic valve with peak aortic valve velocity 3.06 m/sec and mean gradient about 20.3 mmHg without any significant change from the previous study. There was mild tricuspid regurgitation. There were mild atherosclerotic plaques in the aortic arch. At present, he is lying on bed. He is not having any active chest pain or shortness of breath or PND, orthopnea, palpitations, dizziness, syncope, fever, cough, expectoration. No stroke-like symptoms. No claudication. PAST MEDICAL HISTORY: History of bioprosthetic aortic valve replacement 2008 for severe aortic regurgitation without any significant coronary artery disease. The patient was seen by his transcribing machine mechanic, Hernan Hammer in January 2014. At that time, according to the note, he had exercise stress echo for chest pain which was reassuring. There was no obvious ischemia infarction. Prior left heart catheterization did not reveal any significant coronary artery disease. According to the note, the patient had normal coronary arteries at the time of aortic valve surgery. Known history of essential hypertension, hyperlipidemia, TIA, paroxysmal AFib, at present not on anticoagulation, D-dimer dementia, prostate cancer in remission. PAST SURGICAL HISTORY: As stated above. ALLERGIES: 1. LEVOFLOXACIN. 2. TAMSULOSIN. MEDICATION AT HOME: 1. Baclofen 10 mg b.i.d. 2. Plavix 75 mg daily. 3. Donepezil 10 mg q.h.s. 4. Lamotrigine 100 mg tablet 150 p.o. b.i.d. 5. Synthroid 75 mcg daily. 6. Mirtazapine 30 mg q.h.s. 7. Nifedipine ER 90 mg daily. 8. Potassium chloride 10 mEq tablet 20 mg b.i.d. 9. Triamterene hydrochlorothiazide 37.5/25 mg tablet daily. SOCIAL HISTORY: He is an ex-smoker. Denies any current tobacco abuse. He stopped smoking when he was 33 years old. Denies any alcohol abuse. FAMILY HISTORY: Positive for coronary artery disease. REVIEW OF SYSTEMS: Ten point review of systems was obtained and are negative except as stated above. PHYSICAL EXAMINATION: Blood pressure 129-157 systolic, heart rate in 60s, respiratory rate 18, oxygen saturation 94, diastolic blood pressure about 77. HEENT: No significant anemia, jaundice. Neck: No apparent JVP or carotid bruit. Chest: No obvious crepitation or rhonchi. CVS: S1, S2 normal. No S3, no S4. Grade 2 x 6 diffuse ejection systolic murmur. Abdomen: No obvious pulsatile mass felt. No obvious hepatosplenomegaly. Extremities: Mild pedal edema. Vascular: No evidence of critical limb ischemia. All the pulses are equal. No radial femoral delay. CLOTH CHECKER: Alert, oriented to time, place, and person. No obvious motor or sensory deficits. LABORATORIES: Sodium 138, potassium 4.2, BUN 12, creatinine 0.92 with normal AST, ALT, magnesium 2.3. On admission, potassium was 3.2, serial troponin normal. Total cholesterol 171, LDL 92, HDL 64, triglycerides 71, TSH 3.19. In April 2014, carotid Doppler revealed moderate plaque on the right side with less than 50% right side internal carotid artery disease and minimal plaque on the left side. EKG yesterday in the emergency department revealed narrow QRS tachycardia which appears to be regular, rate about 135. Appears to be atrial tachycardia with 2:1 block. It could be an atypical atrial flutter. Repeat EKG today at 11:30 a.m. revealed sinus rhythm with sinus bradycardia, rate 54, with possible LVH with some nonspecific ST-T changes. QTc 465 msec. ASSESSMENT AND PLAN: Prolonged interscapular chest pain with radiation towards anterior part of the chest and arm. The patient ruled out for acute myocardial infarction by serial cardiac markers. It happens in the setting of systolic blood pressure more than 150 and diastolic about 113 as well as tachycardia with possibility of atrial flutter with 2:1 block. The patient has known history of AFib as per his previous cardiology note. He does not have history of coronary artery disease. According to the note, he had normal coronaries at the time of bioprosthetic aortic valve replacement in 2008. At present, I do not suspect ongoing active dissection. I can feel all his pulses. They are equal in nature. He appears compensated. On echocardiogram, he has preserved LV function. Bioprosthetic aortic valve appears to be functioning normally. He has a mild atherosclerotic plaque in the aortic arch. Clinically do not suspect PE. At this point of time, reasonable thing to do is to scan his entire aorta to make sure we are not dealing with localized aortic pathology which can cause this kind of chest pain. As he does not have significant coronary artery disease in the past, stress test will be a low yield procedure. In fact, he had exercise stress echo in 2013 and, according to the note, it was reassuring. There was no obvious ischemic infarction. The patient already ruled out for acute myocardial infarction by serial cardiac markers. In view of atherosclerotic plaque in the carotid arteries as well as aortic arch, he will benefit with statin therapy as well. He has a known history of paroxysmal AFib and this time there is a possibility of atypical atrial flutter. His CHADS2-VASc score is high. He is more than 73 years old, known history of hypertension as well as TIA with CHADS2-VASc score at least 5 which puts him on high risk for stroke. Hence, he will need anticoagulation. Warfarin versus new oral anticoagulants discussed with the patient. He does not have any significant mitral valve disease. It is reasonable to consider new oral anticoagulants. He will need anti-platelet therapy on top of anticoagulation because of atherosclerotic vascular disease. The patient understood the benefits and risks which include, but are not limited to, risk of bleeding. He will need optimization of his medications. He will need regular potassium supplementation as he was hypokalemic at the time of tachycardia. Discussed the plan with the hospitalist team. They agreed and concur. If CT aortogram does not show any significant aortic pathology, then he can be discharged from cardiac perspective. Will recommend patient to see his transcribing machine mechanic, Dr. Hernan Hammer at [place] in two weeks. The patient understood. At this point of time, Cardiology will sign off. Thanks for the cardiology consult. Total time spent today including reviewing his old information, examination and having discussion with the hospitalist team about 75 minutes. JOHN
--- NOTE | 2016-09-05 18:33 | DRSVH ---
PROCEDURE: CT ANG CHEST/ABD W/WO CONTRAST ([id number]) INDICATIONS: SUBSTERNAL CHEST PAIN TECHNIQUE: Precontrast 5 mm thick sections acquired from the lung apices to the iliac crests. After the adminis tration of intravenous contrast, 3 mm thick sections again acquired from the lung apices to the iliac crests. 3-dimensional maximum intensity projection (MIP) oblique sagittal and coronal reformats wer e then acquired, and/or 3-dimensional volume rendering reformats. For radiation dose reduction, the following was used: automated exposure control. COMPARISON: [facility], CT, ANG CHEST/ABD W/WO CONTRAST (PNL), 09/03/2008, 17:22. FINDINGS: Image quality: Excellent. AORTA: No aortic aneurysm or evidence of dissection. There is scattered atheromatous plaque. CHEST: Lungs and pleura: No discrete filling defects to suggest pulmonary embolism. Chronic right middle lo be calcified granuloma. Additional right lung calcified granuloma seen on image 34. No acute airspace opacities. No pleural effusions or pneumothorax. Central and peripheral airways are patent and nor mal in caliber. There is a 5 mm pulmonary nodule seen within the left fissure image 49 series 9 suresh lauren this is probably unchanged since 09/03/08. Mediastinum: Heart size is enlarged and there is coronary artery calcification. No pericardial effu dimple. No mediastinal or hilar adenopathy by size criteria. Central pulmonary arteries are normal in size. Esophagus is normal in caliber. No hiatal hernias. Bones and chest wall: No axillary adenopathy by size criteria. Thyroid gland negative. No suspicio us bony lesions. No vertebral body compression fractures. ABDOMEN: Vasculature: Celiac trunk and mesenteric arteries are patent. Renal arteries are also patent. Solid organs: Multiple presumed hepatic cysts demonstrating water attenuation however several of thes e are too small to characterize definitively and technically indeterminate. and spleen are normal in size. Gallbladder contracted otherwise unremarkable. Biliary system is non dilated. Pancreas enhan tre normally. No adrenal nodules. Both kidneys are normal in size and enhancement, without hydronep hrosis. Peritoneum and bowel: Stomach is distended and contains a large amount of debris No free fluid or ai r. Bowel loops are normal in caliber and wall thickness. Nodes and vessels: No retroperitoneal or mesenteric adenopathy by size criteria. Inferior vena cava is normal in morphology. Bones: No suspicious bony lesions. No vertebral body compression fractures. There is diffuse osteo penia and multilevel degenerative disc disease Miscellaneous: No ventral hernias. IMPRESSION: No evidence of aortic aneurysm or dissection. No pulmonary embolism. Numerous presumed hepatic cysts although some of these are too small to characterize definitively. Cardiomegaly. Dictated by: Erick Siddiqui M.D. on 09/05/2016 at 18:24 Approved by: Erick Siddiqui M.D. on 09/05/2016 at 18:32
[2016-09-06 00:44] VITALS: BP 135/68; PULSE 69; RESP 18; O2SAT 94
[2016-09-06 01:52] VITALS: PULSE 60
[2016-09-06 05:23] VITALS: BP 147/77; PULSE 63; RESP 18; O2SAT 96
--- NOTE | 2016-09-06 05:57 | NUR ---
Uneventful night Patient slept most of the night. Remained alert and oriented, denied pain, vital signs stable. Intentional rounding overnight.
[2016-09-06 06:55] LABS: INR 1.01 ratio
[2016-09-06] MEDS: lamoTRIgine 100 mg Tablet PO SCH (07:36)
[2016-09-06] MEDS: NIFEdipine 30 mg ER24 Tablet PO SCH (07:36)
[2016-09-06] MEDS ORDERED: MeTOProlol XL 25 mg ER24 Tablet PO SCH (08:30)
[2016-09-06 09:34] VITALS: BP 144/76; PULSE 62; RESP 16; O2SAT 95
--- NOTE | 2016-09-06 10:02 | PCM.DC.MED ---
Discharge Summary Date of Service Sep 06, 2016 Dates of Hospitalization Date of Hospital Admission Sep 04, 2016 at 00:17 Date of Discharge: Sep 06, 2016 Providers: Admitting Physician: Clifton Leonardo MD Primary Care Physician: Hernan Cummings Attending Physician: Clifton Leonardo MD Diagnosis at Time of Discharge Diagnosis at Time of Discharge # Atypical chest pain # Paroxysmal atrial flutter/fibrillation # Acute on Chronic hypokalemia # Chronic Hypertension # History of TIA # Aortic valve stenosis post porcine valve replacement # Chronic Dyslipidemia # History of Depression # Chronic Alzheimer's disease # Prostate cancer in remission Consultations Cardiology; Procedures XRay, CTs & MRIs No acute cardiopulmonary processes per wet read ECG 12 Lead ECG in EMR shows sinus tachycardia with appearance of possible ST depression in leads I and aVL, with reciprocal ST elevation in III, aVR, V1 Per the ED report "81-year-old male with substernal chest pain and rapid heart rate brought in by paramedics. There was concern for ST elevation, possible STEMI. He was treated en route with Zofran and aspirin. His pain diminished. Upon arrival here he is EKG showed atrial flutter at a rate of 135 with 2-1 block. The nonconducting flutter waves were on top of the ST segment so it falsely appeared to be ST elevation. Case was discussed with Dr. Santacruz and he reviewed the EKG. He felt that there was atrial flutter with 2-1 block and no STEMI. Patient was given aspirin and one dose of IV metoprolol. His heart rate slowed, revealing atrial flutter with variable block and then converted back to a sinus bradycardia at 57 bpm. Cardiac Echo Impression Previously performed Echocardiogram Report 2014 Interpretation Summary Sinus bradycardia. heart rate is 57-62 bpm. Normal LV size; mild concentric LVH; there is subtle basal inferior, mid- inferior, distal inferior, distal septal and mid-inferoseptal hypokinesis. All other segments demonstrate normal wall motion. EF is normal, estimated at 60-65% . Stage I disatolic dysfunction Aortic valve is replaced by history with a stented bioprosthesis. Aortic valve is functioning normally. There is severe LA enlargement and moderate RA enlargement. Mildly enlarged ascending aorta and ascending root. Compared to prior study dated 11/03/2013, subtle focal wall motion abnormalities in inferior and inferoseptum distribution are unchanged on personal review. Otherwise no significant changes have occurred. Reading Physician:01: 50 PM Brief History As per admission HPI by admitting physician, "Pt is an 81 year old male with a history of of aortic valve replacement (2008), depression, Alzheimer's and prostate cancer post external beam radiation in remission presenting to the ED via EMS complaining of gradual onset intrascapular back pain which eventually radiated into his chest. The patient states that he was out in the yard working this afternoon when he began to feel the pain gradually at onset. The patient describes the pain as pressure initially starting between his scapulas however eventually radiating into his chest. The patient sat down and the pain continued to become worse and eventually growing to 6 out of 10 with associated nausea, clammy cold diaphoresis, dizziness, with mild shortness of breath. The patient took his blood pressure at that time and was found to have a blood pressure of 150s over 100s with an elevated heart rate. The patient states that he called EMS where the patient was given 1 spray Nitro which improved his pain to 1/10, and 8 mg Zofran en route. He denies previous similar symptoms. In the ED the patient was noted to have a possible atrial flutter which was discussed specifically with cardiology, and converted spontaneously after administration of IV metoprolol. There is a possible past medical history remarkable for atrial fibrillation/flutter. The patient denies any recent illness including previous fever or chills, coughing sore throat and runny nose , abdominal pain, swelling in his hands or feet. " Hospital Course # Atypical chest pain - Described as pressure in between the scapula radiating to his chest and occurred at rest however may have resolved with nitroglycerin - ECG initially showed tachycardia however after IV metoprolol push slowed to reveal 2:1 atrial flutter read by the textile dyer per the ED note - Echocardiogram demonstrated no acute abnormalities - Troponin trended as normal at 0.013 - Based discussed with textile dyer, ACS seemed unlikely and ruled out, though he had concern for alterative cardiac cause and recommended further imaging studies (aortagram) in addition to medication changes. - Given patient's past medical history of coronary vessel disease, he is recommending more aggressive blood pressure control at this time - CT aortogram was unremarkable Pt DC'd home without recurrence of atrial flutter or chest pain/pressure. # Paroxysmal atrial flutter/fibrillation - Possibly the cause of the atypical chest pain - Patient and family report a possible previous episode of atrial fibrillation in the past - Noted by the ED provider in communication with the textile dyer, spontaneously cardioverted after administration of metoprolol 5 mg IV - TSH 3.19 and free T4 1 0.43 ordered in the emergency department appear to be in normal ranges - Fibrillation or flutter patters did not reemerge through pt's hospitalization during which time he was monitored on continuous telemetry. - Patient is transitioned to Eloquis given increased ease of dosing as per cardiology recommendation. # Acute on Chronic hypokalemia - Potassium at admission 3.2 - Patient is on chronic potassium chloride replacement 20 mEq twice a day - Normalized by day#1 of hospitalization, no further repletion required. # Chronic Hypertension - Continue outpatient therapy - Nifedipine 90 mg daily - Triamterene/HCTZ - We also restarted beta silvestre on recommendation of textile dyer # History of TIA # Aortic valve stenosis post porcine valve replacement - Patient is chronically on clopidogrel 75 mg daily is recommended to be continued in conjunction with our quest as per cardiology # Chronic Dyslipidemia - Patient not on statin therapy was admitted - Lipid panel reviewed, in spite of normal findings cardiology is recommending initiation of statin medication given underlying vessel disease. # History of Depression - Continue the patient's home medication therapy - Mirtazapine 30 mg at bedtime - Lamictal 150 mg twice a day # Chronic Alzheimer's disease - Continue the patient's home Aricept 10 mg daily # Prostate cancer in remission - Monitor for difficulty with urination Exam Vital Signs (Last) Date Time Temp Pulse Resp B/P Pulse Ox O2 Delivery O2 Flow Rate FiO2 09/06/16 09:34 36.4 62 16 144/76 95 Room Air Exam General: Alert, Oriented X3, Cooperative, No Acute Distress Eyes: PERRLA Neck: Supple Chest & Lungs: Clear to auscultation & percussion, No adventitious breath sounds Cardiovascular: Regular Rate/Rhythm Abdomen: Non-tender, Non-distended Extremities: No cyanosis/clubbing/edema bilat Neurological: Grossly Neurologically Intact Test 09/03/16 21:34 09/04/16 02:00 09/04/16 04:05 09/04/16 08:22 White Blood Count 7.9th/mm3 (3.8-10.1) Red Blood Count 5.14mil/mm3 (4.40-5.80) Hemoglobin 15.2g/dL (13.8-17.2) Hematocrit 45.3% (41.0-50.0) Mean Corpuscular Volume 88.1fL (81-100) Mean Corpuscular Hemoglobin 29.6pg (27.0-35.0) Mean Corpuscular Hemoglobin Concent 33.6% (32.0-37.0) Red Cell Distribution Width 14.7% (12.3-15.4) Platelet Count 328bil/L (150-400) Neutrophils (%) (Auto) 54.7% (40-74) Lymphocytes (%) (Auto) 31.3% (14-46) Monocytes (%) (Auto) 12.0% (4-12) Eosinophils (%) (Auto) 1.3% (0-5) Basophils (%) (Auto) 0.4% (0-3) Magnesium Level 2.3mg/dL (1.6-2.6) Total Bilirubin 0.4mg/dL (0.0-1.2) Aspartate Amino Transf (AST/SGOT) 32U/L (0-50) Alanine Aminotransferase (ALT/SGPT) 21U/L (0-44) Alkaline Phosphatase 84U/L (25-160) Total Protein 8.0g/dL (6.4-8.4) Albumin 4.8g/dL (3.4-5.0) Thyroid Stimulating Hormone (TSH) 3.190uIU/mL (0.450-4.500) Free Thyroxine 1.43ng/dL (0.82-1.77) Urine Color Yellow (YELLOW) Urine Appearance Clear (CLEAR,HAZY) Urine pH 6.5 (5.0-8.0) Urine Specific Conde 1.007 (1.003-1.035) Urine Protein Negativemg/dL (NEG,TRACE) Urine Glucose (UA) Negativemg/dL (NEGATIVE) Urine Ketones Negativemg/dL (NEGATIVE) Urine Occult Blood Negative (NEGATIVE) Urine Nitrite Negative (NEGATIVE) Urine Bilirubin Negative (NEGATIVE) Urine Urobilinogen Normalmg/dL (NORMAL) Urine Leukocyte Esterase Negative (NEGATIVE) Urine RBC 0-2/hpf (0-2) Urine WBC 0-5/hpf (0-5) Urine Epithelial Cells Occasional/hpf (NONE-MOD) Urine Crystals None seen (NONE SEEN) Urine Bacteria None/hpf (NONE-FEW) Urine Hyaline Casts None/lpf (NONE) Urine Granular Casts None seen (NONE SEEN) Urine Waxy Casts None seen (NONE SEEN) Urine Red Blood Cell Casts None seen (NONE SEEN) Urine White Blood Cell Casts None seen (NONE SEEN) Urine Mucus None seen (None Seen) Urine Trichomonas None seen (NONE SEEN) Urine Yeast None (NONE SEEN) Urine Culture Reflexed Not indicated Triglycerides Level 71mg/dL (0-149) Cholesterol Level 171mg/dL (100-199) LDL Cholesterol, Calculated 92.800mg/dL (0-99) VLDL Cholesterol 14.200mg/dL HDL Cholesterol 64mg/dL (>39) Cholesterol/HDL Ratio 2.67 (0.0-4.4) Troponin T 0.010ug/L (0.0-0.011) Test 09/06/16 06:08 Prothrombin Time 10.8sec (8.1-12.5) Prothromb Time International Ratio 1.01ratio Sodium Level 140mEq/L (134-144) Potassium Level 3.5mEq/L (3.5-5.2) Chloride Level 102mEq/L (97-108) Carbon Dioxide Level 26mmol/L (18-29) Blood Urea Nitrogen 14mg/dL (8-27) Creatinine 0.96mg/dL (0.76-1.27) Estimat Glomerular Filtration Rate 80mL/min (>59) Glucose Level 106mg/dL (60-99) Calcium Level 9.2mg/dL (8.5-10.1) Discharge Medications Discharge Medications Apixaban (Eliquis) 5 Mg Tablet 5 MG PO BID Prescribed by: JUDY VENTURA DO Atorvastatin Calcium (Atorvastatin Calcium) 10 Mg Tablet 20 MG PO HS Prescribed by: JUDY VENTURA DO Baclofen (Baclofen) 10 Mg Tablet 10 MG PO BID (Reported) Ca Carb & Gluc/Mag Ox & Gluc (Calcium Magnesium Caplet) 1 Each Tablet 1 EACH PO BID (Reported) Clopidogrel Bisulfate (Plavix) 75 Mg Tablet 75 MG PO DAILY Prescribed by: ANGELITO SMITH MD Donepezil (Donepezil) 10 Mg Tablet 10 MG PO HS (Reported) Lamotrigine (Lamictal) 100 Mg Tablet 150 MG PO BID (Reported) Levothyroxine (Levothyroxine) 75 Mcg Tablet 75 MCG PO DAILY (Reported) Metoprolol Succinate ER (Metoprolol Succinate ER) 25 Mg Tab.er.24h 25 MG PO DAILY Prescribed by: JUDY VENTURA DO Mirtazapine (Mirtazapine) 30 Mg Tablet 30 MG PO HS (Reported) Nifedipine ER (Nifedipine ER) 90 Mg Tab.er.24 90 MG PO DAILY (Reported) Potassium Chloride (Potassium Chloride) 10 Meq Capsule.er 20 MEQ PO BID ( Reported) TAKE WITH FOOD Triamterene/HCTZ 37.5-25 mg (Triamterene/HCTZ 37.5-25 mg) 1 Each Tablet 1 EACH PO AM (Reported) Followup Plan Disposition: Home in stable condition Discharge Diet: No restrictions Discharge Activity: No restrictions Follow-up Provider: Hernan Cummings Follow-up with PCP in: 1 week Time spent 45 minutes copies to: Hernan Cummings Benjamin P DO Sep 06, 2016 10:02
[2016-09-06] MEDS ORDERED: APIX5TAB PO (10:05)
[2016-09-06] MEDS ORDERED: ATOR10TA66 PO (10:05)
[2016-09-06] MEDS ORDERED: METO25TA99 PO (10:05)
--- NOTE | 2016-09-06 10:07 | PCM.DIMED ---
Discharge Instructions Date of Service Sep 06, 2016 Dates of Hospitalization Sep 04, 2016 at 00:17 Discharge Diagnosis Discharge Diagnosis # Atypical chest pain # Paroxysmal atrial flutter/fibrillation # Acute on Chronic hypokalemia # Chronic Hypertension # History of TIA # Aortic valve stenosis post porcine valve replacement # Chronic Dyslipidemia # History of Depression # Chronic Alzheimer's disease # Prostate cancer in remission Diet Discharge Diet: No restrictions Activity Discharge Activity: No restrictions Patient Instructions Follow-up Provider: Hernan Cummings Follow-up with PCP in: 1 week Max Lara DO Sep 06, 2016 10:07 Follow-up Provider: Hernan Cummings Follow-up with PCP in: 1 week Max Lara DO Sep 06, 2016 10:07
[2016-09-06 10:11] VITALS: PULSE 56
--- NOTE | 2016-09-06 10:30 | NUR ---
social Work-readiness for discharge: data:EMR Reviewed. Pt is on day 2 of hospitalization for aflutter per H&P. Pt is likely medically stable later today. placed order for [facility] to check pt's copay for Eliquis medication. SWETA spoke with pt at bedside, SW role explained. SWETA explained that MD would like SW to check benefit. Pt states he goes to [facility]. SWETA called [facility] and faxed RX over to [phone]. [facility] to call back with copay amount. Pt has been up independent in his room. SWETA will continue to follow. Assessment:Pt who is independent at baseline. Plan:Pt to discharge home when medically stable via POV. SWETA has faxed over RX to [facility] to check copay amount, awaiting a return call. SWETA will continue to follow. IVONE Vu Addendum: 09/06/16 at 1339 by BLADE RIOS SWETA updated by [facility] that cost of medication is around $400.00. [facility] states medication does require Prior authorization. SWETA called and provided him with phone number [phone] to complete prior auth. IVONE Vu
[2016-09-06 13:54] VITALS: BP 131/71; PULSE 65; RESP 16; O2SAT 95
--- NOTE | 2016-09-06 15:31 | NUR ---
Social Work-discharge: Data:EMR Reviewed. Pt is on day 2 of hospitalization for aflutter per H&P. Pt is medically stable for discharge today. MD has updated SW that he will speak with pt about medication and prior authorization. Pt has been up independent in his room. No discharge needs identified. SW will continue to follow if needs arise. Assessment:Pt who is independent at baseline. Plan:Pt to discharge home today via POV. MD to speak with pt about medications. No discharge needs identified. SW will continue to follow if needs arise. IVONE Vu
== END 2016-09-06 16:55 | disposition home or self-care (01) | DRG 310 ==
LOC: EDUNIT# 21:31 → EDBD 21:31 → SED 21:31 → MPC 09-04 00:17 → INTOOBSV 09-04 00:17 → OBSVTOIN 09-04 00:17
PROVIDERS: ADMIT Hospitalist; ATTEND Hospitalist
DX: I48.92 Unspecified atrial flutter (principal); Z95.2 Presence of prosthetic heart valve; Z85.46 Personal history of malignant neoplasm of prostate; Z87.891 Personal history of nicotine dependence; I48.0 Paroxysmal atrial fibrillation; E87.6 Hypokalemia; I10 Essential (primary) hypertension; E78.5 Hyperlipidemia, unspecified; F32.9 Major depressive disorder, single episode, unspecified; G30.9 Alzheimer's disease, unspecified; Z66 Do not resuscitate

== ENCOUNTER 2016-10-02 16:12 | Emergency (ER) | payer MEDICARE ==
[~2016-10-02] VITALS: Ht 182.9 cm; Wt 90.9 kg
[~2016-10-02 16:12] MED LIST changes: +APIX5TAB PO; +ATOR10TA66 PO; -Aspirin PO; +DONE10TA42 PO; -DONE5TAB30 PO; +LAMO100T PO; -LEVO750T39 PO; +LEVO75TA4 PO; -LISI-567 PO; +METO25TA99 PO; -NIFE60TA9 PO; +NIFE90TA31 PO
[2016-10-02 16:50] VITALS: BP 183/79; PULSE 54; RESP 24; O2SAT 97
--- NOTE | 2016-10-02 17:34 | ED.REPORT ---
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 He was seen at [facility] a month ago for chest pain and discharged with new onset atrial flutter. He was playing football with his grandson when he fell backwards and hit his head on the pavement. He says that he was dazed for a moment but did not lose consciousness. He was able to get to his feet on his own. He takes warfarin for atrial flutter. He specifically denies chest pain, neck pain or any other injuries. He says that he "broke his fall with his head". Nursing Notes Stated Complaint: HEAD/GLF Chief Complaint: Head, Face, Neck Trauma Nursing Notes Reviewed: Yes Allergies: Coded Allergies: levofloxacin (Verified Allergy, Severe, 09/04/16) Blistering feet tamsulosin (Verified Adverse Reaction, Unknown, DIZZY, NAUSEA, CONFUSION, 07/26/15) Scheduled Apixaban (Eliquis) 5 Mg Tablet 5 MG PO BID Atorvastatin Calcium (Atorvastatin Calcium) 10 Mg Tablet 20 MG PO HS Baclofen (Baclofen) 10 Mg Tablet 10 MG PO BID Ca Carb & Gluc/Mag Ox & Gluc (Calcium Magnesium Caplet) 1 Each Tablet 1 EACH PO BID Clopidogrel Bisulfate (Plavix) 75 Mg Tablet 75 MG PO DAILY Donepezil (Donepezil) 10 Mg Tablet 10 MG PO HS Lamotrigine (Lamictal) 100 Mg Tablet 150 MG PO BID Levothyroxine (Levothyroxine) 75 Mcg Tablet 75 MCG PO DAILY Metoprolol Succinate ER (Metoprolol Succinate ER) 25 Mg Tab.er.24h 25 MG PO DAILY Mirtazapine (Mirtazapine) 30 Mg Tablet 30 MG PO HS Nifedipine ER (Nifedipine ER) 90 Mg Tab.er.24 90 MG PO DAILY Potassium Chloride (Potassium Chloride) 10 Meq Capsule.er 20 MEQ PO BID TAKE WITH FOOD Triamterene/HCTZ 37.5-25 mg (Triamterene/HCTZ 37.5-25 mg) 1 Each Tablet 1 EACH PO AM General Time Seen by MD: 17:33 Chief Complaint Fall Hx Obtained From: Patient Arrived By: Walk-in Onset Occurred: Just prior to arrival Symptom Duration: Since onset Caused by: Accidental, Fall on ground Location: Head Quality: Painful Severity: Current: Mild Recent Healthcare: Recent doctor visit Similar Sx Previous: Yes Past Medical History Past Medical History Depression HTN Alzheimer's Prostate cancer Reports: Cancer Reports: Atrial flutter Past Surgical History Aortic valve replacement 2009 Smoking History Former Smoker Social History none reported Alcohol Use: Denies alcohol use Drug Use: Denies drug use Ambulatory Status Independent Review of Systems Neurologic: Reports: Headache Complete sys rev & neg: except as marked. Physical Exam Initial Vital Signs Vital Signs (First) Date Time Temp Pulse Resp B/P Pulse Ox O2 Delivery O2 Flow Rate FiO2 10/02/16 16:50 36.5 54 24 183/79 97 Room Air Initial VS: Reviewed ENT: Mucous membranes moist, Conjunctiva normal Respiratory: No respiratory distress Abdomen / GI: Soft, Non-tender, No guarding, No rebound Back: No CVA tenderness Lymphatic: No lymphadenopathy Extremities: Vascular intact, Neuro intact, No swelling Skin: Warm, Dry Neurologic: Alert, Oriented Psychiatric: Mood/affect normal Neck: Atraumatic, Supple, Full range of motion, Non-tender 3 cm laceration on the crown of his head with surrounding abrasion and subgaleal hematoma. Respiratory / Chest: Atraumatic, No chest tenderness Interpretation & Diagnostics Lab Results Interpretation Test 10/02/16 19:14 Prothrombin Time 17.9sec (8.1-12.5) Prothromb Time International Ratio 1.66ratio Procedures Laceration Management Time: 19:33 Procedure Performed by: ED physician Consent / Setup / Site Prep: Informed consent provided Location of Wound: At the apex of the head Wound Length: 3 cm Local Anesthesia: Lidocaine w epi 2% Wound Preparation: Shurclens Debridement: None Irrigation: 50 cc Foreign Body Explore / Removal: Explored for foreign body Repair Skin: Jaylin # Sutures - Skin: 3 Closure Layers: 1 Post-Procedure / Complications: Antibiotic oint applied, Dressing applied, No complications Re-Eval/Medical Decision Counseled Regarding: Diagnosis, Lab results, Need for follow-up, When/why to return to ED Discharge & Departure Impression: Primary Impression: Fall from ground level Additional Impressions: Laceration Warfarin anticoagulation Disposition: Home Discharge Condition All VS Reviewed: Yes Condition: Stable Patient Instructions: Laceration (ED) Additional Instructions: No dangerous head injury was discovered today on CT scanning. [place] need to be removed in 7 days. It is okay to wash with cleaning soap and water daily. Return to the emergency department for uncontrolled bleeding or any suspicion of infection. Referrals: Reno Castillo MD (PCP) Scribe Attestation Portion of this note were transcribed by Alison England. I, Dr. Costa, personally performed the history, physical exam, and medical decision-making: I reviewed and confirmed the accuracy for the information in the transcribed note. Signed by: sri Tuttle, 10/02/16 1800 copies to: Reno Castillo MD, Kirk H MD Oct 02, 2016 17:34 Alison England Oct 02, 2016 17:36
--- NOTE | 2016-10-02 19:08 | DRSVH ---
PROCEDURE: CT BRAIN WITHOUT CONTRAST ([id number]) INDICATIONS: GLF TECHNIQUE: Noncontrast 4.5 mm thick angled axial sections acquired from the foramen magnum to the vertex, with c oronal reformats. COMPARISON: [facility], CT, BRAIN (TPA), 05/16/2014, 9:44. [facility], CT, B RAIN W/O CONTRAST, 07/05/2011, 17:25. FINDINGS: Image quality: Good CSF spaces: Basal cisterns are patent. No extra-axial fluid collections. The ventricles are symmet baldemar in size and shape. Brain: No intracranial bleeds or masses. There is cerebral volume loss for age, with resultant vent ricular and sulcal prominence. There are periventricular and deep white matter chronic small vessel ischemic changes. There is intracranial internal carotid artery atherosclerosis. Skull and face: Calvarium and visualized facial bones appear intact, without suspicious lesions. Sinuses: Visualized sinuses and mastoids are clear. IMPRESSION: No acute intracranial abnormality is seen. Atrophic change and microvascular ischemic change of aging is present. There appears to be prominent soft tissue swelling over the posterior high left parietal lobe. Dictated by: Luis Urban M.D. on 10/02/2016 at 19:04 Approved by: Luis Urban M.D. on 10/02/2016 at 19:06
[2016-10-02 19:38] LABS: INR 1.66 ratio
[2016-10-02 19:52] VITALS: BP 151/88; PULSE 60; RESP 16; O2SAT 100
== END 2016-10-02 19:53 | disposition home or self-care (01) ==
LOC: SED 16:12
DX: S01.81XA Laceration without foreign body of other part of head, initial encounter (principal); W18.39XA Other fall on same level, initial encounter; Y93.61 Activity, american tackle football; Y92.488 Other paved roadways as the place of occurrence of the external cause; Y99.8 Other external cause status; Z79.01 Long term (current) use of anticoagulants; G30.9 Alzheimer's disease, unspecified; C61 Malignant neoplasm of prostate; Z95.2 Presence of prosthetic heart valve; I10 Essential (primary) hypertension; Z87.891 Personal history of nicotine dependence; Z88.1 Allergy status to other antibiotic agents; Z88.8 Allergy status to other drugs, medicaments and biological substances

== ENCOUNTER 2016-10-09 11:45 | Emergency (ER) | payer MEDICARE ==
[2016-10-09 11:50] VITALS: BP 131/68; PULSE 72; RESP 16; O2SAT 98
== END 2016-10-09 11:58 | disposition home or self-care (01) ==
LOC: SED 11:45
DX: Z48.02 Encounter for removal of sutures (principal)